=== PATIENT | female | born 1935 | race African-American/Black ===

== ENCOUNTER 2020-11-10 20:53 | Inpatient (IN) ==
[2020-11-11 00:44] LABS: Alanine Aminotransferase 25 U/L (13-56); Albumin 3.2 G/DL (3.4-5.0); Alkaline Phosphatase 90 U/L (45-117); Aspartate Amino Transferase 21 U/L (0-37); Bilirubin,Total < 0.39 MG/DL (0.2-1.0); Blood Urea Nitrogen 15 MG/DL (7-18); Calcium 8.6 MG/DL (8.5-10.1); Carbon Dioxide 23 MMOL/L (21-32); Estimated Glom Filtration Rate 63 ML/MIN; Glucose 114 MG/DL (74-106); Osmolality,Calculated 284.1 MOS/KG (273-304); Potassium 3.9 MMOL/L (3.5-5.1); Sodium 142 MMOL/L (136-145); Total Protein 7.4 G/DL (6.4-8.3)
[2020-11-11 01:17] LABS: Basophils % 0.7 % (0.0-0.8); Eosinophils # 0.1 10*3/uL (0.0-0.87); Eosinophils % 1.2 % (0.00-10.9); Immature Granulocytes % 1.7 %; Immature Granulocytes Absolute 0.07 #; Lymphocytes # 1.2 10*3/uL (1.4-4.0); Lymphocytes % 28.5 % (21.3-54.2); Mean Corpuscular Volume 121.7 FL (87-102); Monocytes % 4.8 % (1.7-12.7); NRBC # 0.03 10*3/uL; Neutrophils % 63.1 % (38.7-73.9); Platelet Count 147 T/CUMM (130-400); Red Blood Count 1.15 MC/CUMM (3.8-5.5); Red Cell Distribution Width 19.3 % (9.3-17.3); White Blood Count 4.1 T/CUMM (4-12)
[2020-11-11 01:19] LABS: Hemoglobin 4.2 GM/DL (12.0-16.0)
[2020-11-11 01:37] LABS: Eosinophils 2 % (0-10); Hypochromasia 3+; Lymphocytes 25 % (20-55); Ovalocytes 1+; Platelet Estimate Normal
[2020-11-11 01:38] LABS: Acanthocytes Few; Macrocytosis Slight; Segmented Neutrophils 0 % (50-85); Total Cells Counted 100
[2020-11-11] MEDS ORDERED: DEXTROSE 50% 25 GM/50 ML VIAL IV PRN (01:38)
[2020-11-11] MEDS ORDERED: GLUCAGON 1 MG VIAL IM PRN (01:38)
[2020-11-11] MEDS ORDERED: SODIUM CHLORIDE 0.9% 1,000 ML IV PRN ×2 (01:38→09:58)
[2020-11-11] MEDS ORDERED: ONDANSETRON 4 MG/2 ML VIAL IV PRN (01:48)
[2020-11-11] MEDS ORDERED: NICOTINE 21 MG/24 HR PATCH TRANSDERM PRN (01:48)
[2020-11-11] MEDS ORDERED: ACETAMINOPHEN 325 MG TABLET PO PRN (01:48)
[2020-11-11] MEDS: PANTOPRAZOLE 40 MG VIAL IV SCH ×3 (02:29→20:44)
[2020-11-11 03:10] LABS: Basophils % 0.7 % (0.0-0.8); Eosinophils # 0.1 10*3/uL (0.0-0.87); Eosinophils % 1.2 % (0.00-10.9); Immature Granulocytes % 1.9 %; Immature Granulocytes Absolute 0.08 #; Lymphocytes # 1.5 10*3/uL (1.4-4.0); Lymphocytes % 35.2 % (21.3-54.2); Mean Corpuscular HGB Conc 29.5 GM/DL (32-36); Mean Corpuscular Volume 125.9 FL (87-102); Mean Platelet Volume 14.9 FL (9.6-12.0); Monocytes % 5.6 % (1.7-12.7); NRBC # 0.02 10*3/uL; Neutrophils % 55.4 % (38.7-73.9); Platelet Count 137 T/CUMM (130-400); Red Blood Count 1.16 MC/CUMM (3.8-5.5); Red Cell Distribution Width 19.3 % (9.3-17.3); White Blood Count 4.3 T/CUMM (4-12)
[2020-11-11 03:16] LABS: Hematocrit 14.6 VOL% (35.7-47.0); Hemoglobin 4.3 GM/DL (12.0-16.0)
[2020-11-11 04:04] LABS: Folate 15.8 NG/ML (5.38-24.0)
[2020-11-11 04:27] LABS: Sedimentation Rate-Westergren 112 MM/HR (0-30)
[2020-11-11 08:41] LABS: Hematocrit 20.2 VOL% (35.7-47.0)
[2020-11-11 08:45] LABS: Hemoglobin 6.2 GM/DL (12.0-16.0)
[2020-11-11] MEDS: hydrALAZINE 20 MG/1 ML VIAL IV PRN (14:00)
[2020-11-11 16:43] LABS: Hematocrit 28.5 VOL% (35.7-47.0); Hemoglobin 9.1 GM/DL (12.0-16.0)
[2020-11-11] MEDS ORDERED: FUROSEMIDE 20 MG/2 ML VIAL IV ONE (19:50)
[2020-11-11 20:51] LABS: Hematocrit 28.7 VOL% (35.7-47.0); Hemoglobin 9.1 GM/DL (12.0-16.0)
[2020-11-12 04:28] LABS: Basophils # 0.1 10*3/uL (0.0-0.2); Eosinophils # 0.1 10*3/uL (0.0-0.87); Eosinophils % 1.3 % (0.00-10.9); Hematocrit 28.3 VOL% (35.7-47.0); Hemoglobin 9.2 GM/DL (12.0-16.0); Immature Granulocytes % 3.1 %; Immature Granulocytes Absolute 0.17 #; Lymphocytes % 18.6 % (21.3-54.2); Mean Corpuscular HGB Conc 32.5 GM/DL (32-36); Mean Corpuscular Volume 101.4 FL (87-102); Monocytes % 8.5 % (1.7-12.7); Neutrophils % 66.5 % (38.7-73.9); Platelet Count 126 T/CUMM (130-400); Red Cell Distribution Width 22.4 % (9.3-17.3); White Blood Count 5.4 T/CUMM (4-12)
[2020-11-12 04:34] LABS: Red Blood Count 2.79 MC/CUMM (3.8-5.5)
[2020-11-12 04:46] LABS: Calcium 8.7 MG/DL (8.5-10.1); Osmolality,Calculated 282.1 MOS/KG (273-304); Potassium 3.4 MMOL/L (3.5-5.1)
[2020-11-12 04:55] LABS: Eosinophils 2 % (0-10); Hypochromasia 1+; Lymphocytes 17 % (20-55); Microcytosis 1+; Segmented Neutrophils 75 % (50-85); Total Cells Counted 100
[2020-11-12 05:23] LABS: Vitamin B12 1630 PG/ML (211-911)
[2020-11-12 05:24] LABS: Folate 15.8 NG/ML (5.38-24.0)
[2020-11-12] MEDS: PANTOPRAZOLE 40 MG VIAL IV SCH ×2 (08:12→20:34)
[2020-11-12] MEDS: FUROSEMIDE 20 MG/2 ML VIAL IV SCH ×2 (09:34→16:49)
[2020-11-12] MEDS: hydrALAZINE 20 MG/1 ML VIAL IV PRN (11:40)
[2020-11-12 14:56] LABS: % Iron Saturation 77.9 % (18-50)
[2020-11-12] MEDS: POTASSIUM CHLORIDE 20 MEQ TABLET PO PRN ×2 (15:08→16:49)
[2020-11-12 15:10] LABS: Hb A 91.6 % (95.8-98.0); Hb A2 1.9 % (2.0-3.3); Hb F 6.5 % (0.0-0.9)
[2020-11-13 05:51] LABS: Hemoglobin A1 (Alkaline) 91.6 % (96.5-98.5); Hemoglobin A2 (Alkaline) 1.9 % (1.5-3.5); Hemoglobin F (Alkaline) 6.5 %
[2020-11-13 06:58] LABS: Basophils # 0.1 10*3/uL (0.0-0.2); Basophils % 2.2 % (0.0-0.8); Eosinophils # 0.1 10*3/uL (0.0-0.87); Eosinophils % 1.7 % (0.00-10.9); Hemoglobin 8.4 GM/DL (12.0-16.0); Immature Granulocytes % 1.7 %; Immature Granulocytes Absolute 0.07 #; Lymphocytes # 1.2 10*3/uL (1.4-4.0); Lymphocytes % 27.9 % (21.3-54.2); Mean Corpuscular HGB Conc 32.3 GM/DL (32-36); Mean Corpuscular Volume 100.8 FL (87-102); Mean Platelet Volume 14.8 FL (9.6-12.0); Monocytes % 8.2 % (1.7-12.7); NRBC # 0.02 10*3/uL; Neutrophils % 58.3 % (38.7-73.9); Platelet Count 124 T/CUMM (130-400); Red Blood Count 2.58 MC/CUMM (3.8-5.5); Red Cell Distribution Width 21.1 % (9.3-17.3); White Blood Count 4.2 T/CUMM (4-12)
[2020-11-13 07:14] LABS: Calcium 8.4 MG/DL (8.5-10.1); Osmolality,Calculated 288.7 MOS/KG (273-304); Potassium 3.5 MMOL/L (3.5-5.1)
[2020-11-13 07:24] LABS: Band Neutrophils 1 % (0-10); Eosinophils 1 % (0-10); Hypochromasia 1+; Lymphocytes 28 % (20-55); Microcytosis 1+; Ovalocytes Slight; Segmented Neutrophils 67 % (50-85); Total Cells Counted 100
[2020-11-13] MEDS: PANTOPRAZOLE 40 MG VIAL IV SCH ×2 (08:59→20:47)
[2020-11-13] MEDS: FUROSEMIDE 20 MG/2 ML VIAL IV SCH ×2 (08:59→15:27)
[2020-11-13] MEDS: LEVOFLOXACIN INJ 750 MG in PREMIX 1 EACH IV SCH (17:58)
[2020-11-14 05:39] LABS: Basophils # 0.1 10*3/uL (0.0-0.2); Basophils % 1.3 % (0.0-0.8); Eosinophils # 0.1 10*3/uL (0.0-0.87); Hematocrit 25.3 VOL% (35.7-47.0); Hemoglobin 8.4 GM/DL (12.0-16.0); Immature Granulocytes % 1.6 %; Immature Granulocytes Absolute 0.07 #; Lymphocytes % 21.6 % (21.3-54.2); Mean Corpuscular HGB Conc 33.2 GM/DL (32-36); Mean Corpuscular Volume 100.4 FL (87-102); NRBC # 0.02 10*3/uL; Neutrophils % 63.5 % (38.7-73.9); Platelet Count 106 T/CUMM (130-400); Red Blood Count 2.52 MC/CUMM (3.8-5.5); Red Cell Distribution Width 20.4 % (9.3-17.3); White Blood Count 4.5 T/CUMM (4-12)
[2020-11-14 06:03] LABS: Calcium 8.6 MG/DL (8.5-10.1); Osmolality,Calculated 281.1 MOS/KG (273-304); Potassium 3.7 MMOL/L (3.5-5.1)
[2020-11-14 06:07] LABS: Hypochromasia 2+; Microcytosis 1+
[2020-11-14 06:08] LABS: Anisocytosis 1+; Ovalocytes Few; Platelet Estimate Decreased
[2020-11-14] MEDS: PANTOPRAZOLE 40 MG VIAL IV SCH ×2 (08:44→20:22)
[2020-11-14] MEDS: FUROSEMIDE 20 MG/2 ML VIAL IV SCH ×2 (08:44→15:15)
[2020-11-14] MEDS: LACTATED RINGERS 1,000 ML IV SCH (12:15)
[2020-11-14] MEDS ORDERED: LIDOCAINE 2% 5 ML VIAL ONE (12:57)
[2020-11-14] MEDS ORDERED: propofoL 200 MG/20 ML VIAL IV ONE (12:57)
[2020-11-14] MEDS ORDERED: POLYETHYLENE GLYCOL POWDER 255 GM BOTTLE PO ONE (18:00)
[2020-11-14] MEDS: LEVOFLOXACIN INJ 750 MG in PREMIX 1 EACH IV SCH (20:24)
[2020-11-15] MEDS ORDERED: MAGNESIUM CITRATE 300 ML BOTTLE PO ONE (06:00)
[2020-11-15 06:26] LABS: Basophils # 0.1 10*3/uL (0.0-0.2); Basophils % 1.1 % (0.0-0.8); Eosinophils # 0.1 10*3/uL (0.0-0.87); Hematocrit 25.1 VOL% (35.7-47.0); Hemoglobin 7.9 GM/DL (12.0-16.0); Immature Granulocytes % 1.6 %; Immature Granulocytes Absolute 0.07 #; Lymphocytes # 0.7 10*3/uL (1.4-4.0); Lymphocytes % 15.8 % (21.3-54.2); Mean Corpuscular HGB Conc 31.5 GM/DL (32-36); Mean Corpuscular Volume 102.4 FL (87-102); Monocytes % 9.5 % (1.7-12.7); NRBC # 0.03 10*3/uL; Platelet Count 108 T/CUMM (130-400); Red Blood Count 2.45 MC/CUMM (3.8-5.5); Red Cell Distribution Width 19.9 % (9.3-17.3); White Blood Count 4.4 T/CUMM (4-12)
[2020-11-15 08:19] LABS: Band Neutrophils 2 % (0-10); Eosinophils 6 % (0-10); Lymphocytes 8 % (20-55); Nucleated Red Blood Cells 1 (0-5); Segmented Neutrophils 78 % (50-85); Total Cells Counted 100
[2020-11-15 08:20] LABS: Anisocytosis 1+; Hypochromasia Slight; Microcytosis 1+
[2020-11-15 08:21] LABS: Platelet Estimate Adequate; Polychromasia Slight
[2020-11-15] MEDS: FUROSEMIDE 20 MG/2 ML VIAL IV SCH ×2 (08:38→16:26)
[2020-11-15] MEDS: PANTOPRAZOLE 40 MG VIAL IV SCH ×2 (08:39→21:25)
[2020-11-15] MEDS ORDERED: LIDOCAINE 2% 5 ML VIAL ONE (13:09)
[2020-11-15] MEDS ORDERED: propofoL 200 MG/20 ML VIAL IV ONE (13:09)
[2020-11-15] MEDS ORDERED: GLYCOPYRROLATE 0.4 MG/2 ML VIAL ONE (13:45)
[2020-11-15] MEDS ORDERED: PHENYLEPHRINE 1 MG/10 ML SYRINGE IV ONE (13:45)
[2020-11-15] MEDS: LACTATED RINGERS 1,000 ML IV SCH (14:02)
[2020-11-15] MEDS: LEVOFLOXACIN INJ 750 MG in PREMIX 1 EACH IV SCH (21:27)
[2020-11-16 06:18] LABS: Basophils # 0.1 10*3/uL (0.0-0.2); Basophils % 2.7 % (0.0-0.8); Eosinophils # 0.1 10*3/uL (0.0-0.87); Hematocrit 25.3 VOL% (35.7-47.0); Immature Granulocytes % 1.7 %; Immature Granulocytes Absolute 0.05 #; Lymphocytes % 32.3 % (21.3-54.2); Mean Corpuscular HGB Conc 31.6 GM/DL (32-36); Monocytes % 10.4 % (1.7-12.7); Neutrophils % 48.9 % (38.7-73.9); Red Blood Count 2.48 MC/CUMM (3.8-5.5); Red Cell Distribution Width 19.9 % (9.3-17.3)
[2020-11-16 06:22] LABS: Platelet Count 96 T/CUMM (130-400)
[2020-11-16 06:40] LABS: Calcium 8.1 MG/DL (8.5-10.1); Osmolality,Calculated 283.1 MOS/KG (273-304); Potassium 2.9 MMOL/L (3.5-5.1)
[2020-11-16 06:52] LABS: Band Neutrophils 1 % (0-10); Eosinophils 5 % (0-10); Lymphocytes 28 % (20-55); Segmented Neutrophils 60 % (50-85); Total Cells Counted 100
[2020-11-16 06:54] LABS: Hypochromasia 1+; Ovalocytes 1+; Platelet Estimate Decreased; Reactive Lymphocytes Few
[2020-11-16 06:55] LABS: Microcytosis 1+
[2020-11-16] MEDS: FUROSEMIDE 20 MG/2 ML VIAL IV SCH (08:55)
[2020-11-16] MEDS: PANTOPRAZOLE 40 MG VIAL IV SCH (08:56)
[2020-11-16] MEDS: POTASSIUM CHLORIDE 20 MEQ TABLET PO PRN (08:57)
[2020-11-16] MEDS: LACTATED RINGERS 1,000 ML IV SCH (08:59)
[2020-11-16 11:04] VITALS: BP 123/61
[2020-11-16] MEDS ORDERED: POTASSIUM CHLORIDE 20 MEQ PACK PO ONE (11:35)
== END 2020-11-16 13:34 | disposition home or self-care (01) | DRG 811 ==
LOC: N.ED 20:53 → N.EDINP 11-11 01:38 → N.ICU 11-11 02:47 → N.5E 11-12 15:30
PROVIDERS: ADMIT Internal Medicine; ATTEND Internal Medicine

== ENCOUNTER 2021-01-24 10:08 | Inpatient (IN) ==
[2021-01-24 12:25] LABS: Basophils # 0.1 10*3/uL (0.0-0.2); Basophils % 1.3 % (0.0-0.8); Eosinophils # 0.1 10*3/uL (0.0-0.87); Eosinophils % 1.5 % (0.00-10.9); Immature Granulocytes Absolute 0.04 #; Lymphocytes # 1.3 10*3/uL (1.4-4.0); Lymphocytes % 33.5 % (21.3-54.2); Mean Corpuscular Volume 107.4 FL (87-102); Monocytes % 5.4 % (1.7-12.7); Neutrophils % 57.3 % (38.7-73.9); Platelet Count 148 T/CUMM (130-400); Red Blood Count 1.35 MC/CUMM (3.8-5.5); Red Cell Distribution Width 24.4 % (9.3-17.3); White Blood Count 3.9 T/CUMM (4-12)
[2021-01-24 12:33] LABS: INR 1.1; PT Patient Result 12.4 SECS (10.5-12.0)
[2021-01-24 12:37] LABS: Hemoglobin 4.5 GM/DL (12.0-16.0)
[2021-01-24 12:38] LABS: Hematocrit 14.5 VOL% (35.7-47.0)
[2021-01-24 12:44] LABS: Albumin 3.4 G/DL (3.4-5.0); Bilirubin,Total 0.7 MG/DL (0.2-1.0); Calcium 9.1 MG/DL (8.5-10.1); Osmolality,Calculated 277.4 MOS/KG (273-304); Potassium 3.8 MMOL/L (3.5-5.1); Total Protein 7.6 G/DL (6.4-8.2)
[2021-01-24 12:52] LABS: Atypical Lymphocytes 1+; Band Neutrophils 1 % (0-10); Eosinophils 2 % (0-10); Lymphocytes 38 % (20-55); Platelet Estimate Adequate; Segmented Neutrophils 53 % (50-85); Total Cells Counted 100
[2021-01-24 12:53] LABS: Macrocytosis 2+; Ovalocytes Few; Schistocytes Slight; Target Cells Slight
[2021-01-24] MEDS ORDERED: ALBUTEROL 2.5 MG/3 ML NEB RESP TX PRN (13:25)
[2021-01-24] MEDS ORDERED: GLUCAGON 1 MG VIAL IM PRN (13:25)
[2021-01-24] MEDS ORDERED: DEXTROSE 50% 25 GM/50 ML VIAL IV PRN (13:25)
[2021-01-24 13:42] LABS: % Iron Saturation 89.6 % (18-50); Ferritin 555.2 ng/ml (8-252)
[2021-01-24] MEDS ORDERED: SODIUM CHLORIDE 0.9% 1,000 ML IV PRN (13:53)
[2021-01-24] MEDS ORDERED: FUROSEMIDE 40 MG/4 ML VIAL IV PRN (13:54)
[2021-01-24] MEDS: SODIUM CHLORIDE 0.9% 1,000 ML IV SCH (19:10)
[2021-01-25 05:29] LABS: Basophils # 0.1 10*3/uL (0.0-0.2); Basophils % 1.8 % (0.0-0.8); Eosinophils # 0.1 10*3/uL (0.0-0.87); Eosinophils % 1.3 % (0.00-10.9); Hematocrit 19.8 VOL% (35.7-47.0); Hemoglobin 6.6 GM/DL (12.0-16.0); Immature Granulocytes % 1.1 %; Immature Granulocytes Absolute 0.04 #; Lymphocytes # 1.1 10*3/uL (1.4-4.0); Lymphocytes % 28.2 % (21.3-54.2); Mean Corpuscular HGB Conc 33.3 GM/DL (32-36); Mean Corpuscular Volume 97.5 FL (87-102); Monocytes % 8.9 % (1.7-12.7); Neutrophils % 58.7 % (38.7-73.9); Platelet Count 114 T/CUMM (130-400); Red Blood Count 2.03 MC/CUMM (3.8-5.5); White Blood Count 3.8 T/CUMM (4-12)
[2021-01-25 06:00] LABS: Potassium 3.3 MMOL/L (3.5-5.1); Thyroid Stimulating Hormone 2.6 uIU/ml (0.358-3.74)
[2021-01-25 07:03] LABS: Atypical Lymphocytes Few; Band Neutrophils 17 % (0-10); Eosinophils 1 % (0-10); Lymphocytes 29 % (20-55); Myelocytes 1 %; Platelet Estimate Adequate; Segmented Neutrophils 48 % (50-85); Total Cells Counted 100
[2021-01-25 07:04] LABS: Anisocytosis 2+; Burr Cells Few; Ovalocytes Few; Poikilocytosis 1+
[2021-01-25 07:05] LABS: Acanthocytes Few; Macrocytosis 1+
[2021-01-25] MEDS ORDERED: SODIUM CHLORIDE 0.9% 1,000 ML IV PRN (08:12)
[2021-01-25] MEDS ORDERED: POTASSIUM CHLORIDE 20 MEQ TABLET PO ONE (08:15)
[2021-01-25] MEDS: PANTOPRAZOLE 40 MG VIAL IV SCH (08:54)
[2021-01-25 10:15] LABS: Vitamin B12 > 2000 PG/ML (211-911)
[2021-01-25 10:18] LABS: Ferritin 558.5 ng/ml (8-252)
[2021-01-25 10:52] LABS: Sedimentation Rate-Westergren 81 MM/HR (0-30)
[2021-01-25 18:37] LABS: Hematocrit 22.8 VOL% (35.7-47.0); Hemoglobin 7.6 GM/DL (12.0-16.0)
[2021-01-26 06:51] LABS: Basophils # 0.1 10*3/uL (0.0-0.2); Basophils % 1.5 % (0.0-0.8); Eosinophils # 0.1 10*3/uL (0.0-0.87); Eosinophils % 1.9 % (0.00-10.9); Hematocrit 22.5 VOL% (35.7-47.0); Hemoglobin 7.4 GM/DL (12.0-16.0); Immature Granulocytes Absolute 0.04 #; Lymphocytes # 1.2 10*3/uL (1.4-4.0); Lymphocytes % 29.4 % (21.3-54.2); Mean Corpuscular HGB Conc 32.9 GM/DL (32-36); Mean Corpuscular Volume 96.2 FL (87-102); Monocytes % 7.5 % (1.7-12.7); Neutrophils % 58.7 % (38.7-73.9); Platelet Count 103 T/CUMM (130-400); Red Blood Count 2.34 MC/CUMM (3.8-5.5); Red Cell Distribution Width 20.3 % (9.3-17.3); White Blood Count 4.1 T/CUMM (4-12)
[2021-01-26 07:34] LABS: Anisocytosis 3+; Burr Cells Few; Platelet Estimate Adequate
[2021-01-26 07:35] LABS: Macrocytosis 1+; Ovalocytes Few
[2021-01-26 09:04] LABS: Calcium 8.8 MG/DL (8.5-10.1); Osmolality,Calculated 285.8 MOS/KG (273-304); Potassium 3.4 MMOL/L (3.5-5.1)
[2021-01-26 09:08] LABS: Troponin I 0.026 NG/ML (0.00-0.045)
[2021-01-26] MEDS: PANTOPRAZOLE 40 MG VIAL IV SCH (09:18)
[2021-01-26] MEDS ORDERED: SODIUM CHLOR 0.45% KCL 20 MEQ 20 MEQ/1,000 ML BAG IV SCH (10:30)
[2021-01-26 14:45] LABS: Troponin I 0.022 NG/ML (0.00-0.045)
[2021-01-26 19:09] LABS: Barbiturates Screen,Urine Negative (Negative); Benzodiazepines Screen,Urine Negative (Negative); Cannabinoid Screen,Urine Negative (Negative); Opiate Screen,Urine Negative (Negative); Phencyclidine Screen,Urine Negative (Negative)
[2021-01-26 20:54] LABS: Troponin I 0.017 NG/ML (0.00-0.045)
[2021-01-27 05:04] LABS: Basophils # 0.1 10*3/uL (0.0-0.2); Basophils % 1.1 % (0.0-0.8); Eosinophils # 0.1 10*3/uL (0.0-0.87); Eosinophils % 1.4 % (0.00-10.9); Hematocrit 22.8 VOL% (35.7-47.0); Hemoglobin 7.4 GM/DL (12.0-16.0); Immature Granulocytes % 0.9 %; Immature Granulocytes Absolute 0.04 #; Lymphocytes # 1.2 10*3/uL (1.4-4.0); Lymphocytes % 27.8 % (21.3-54.2); Mean Corpuscular HGB Conc 32.5 GM/DL (32-36); Mean Corpuscular Volume 98.7 FL (87-102); Neutrophils % 62.8 % (38.7-73.9); Platelet Count 112 T/CUMM (130-400); Red Blood Count 2.31 MC/CUMM (3.8-5.5); Red Cell Distribution Width 19.8 % (9.3-17.3); White Blood Count 4.4 T/CUMM (4-12)
[2021-01-27 05:21] LABS: Calcium 8.4 MG/DL (8.5-10.1); Osmolality,Calculated 282.1 MOS/KG (273-304); Potassium 3.7 MMOL/L (3.5-5.1)
[2021-01-27 05:31] LABS: Anisocytosis 1+; Atypical Lymphocytes Few; Band Neutrophils 2 % (0-10); Hypochromasia 1+; Lymphocytes 29 % (20-55); Macrocytosis 1+; Myelocytes 1 %; Segmented Neutrophils 57 % (50-85); Total Cells Counted 100
[2021-01-27 05:32] LABS: Platelet Estimate Adequate
[2021-01-27 05:49] LABS: Hemoglobin A1 (Alkaline) 89.9 % (96.5-98.5); Hemoglobin A2 (Alkaline) 2.1 % (1.5-3.5)
[2021-01-27 05:54] LABS: Folate > 24.00 NG/ML (5.38-24.0)
[2021-01-27] MEDS: SODIUM CHLORIDE 0.9% 1,000 ML IV SCH (07:42)
[2021-01-27] MEDS: PANTOPRAZOLE 40 MG VIAL IV SCH (08:49)
[2021-01-27] MEDS ORDERED: SODIUM CHLORIDE 0.9% 1,000 ML IV PRN (12:30)
[2021-01-27] MEDS ORDERED: diphenhydrAMINE 50 MG/1 ML VIAL IV PRN (12:32)
[2021-01-27] MEDS ORDERED: ACETAMINOPHEN 325 MG TABLET PO PRN (12:32)
[2021-01-28 05:27] LABS: Basophils # 0.1 10*3/uL (0.0-0.2); Eosinophils # 0.1 10*3/uL (0.0-0.87); Hematocrit 26.8 VOL% (35.7-47.0); Hemoglobin 8.6 GM/DL (12.0-16.0); Immature Granulocytes % 1.2 %; Immature Granulocytes Absolute 0.06 #; Lymphocytes # 1.3 10*3/uL (1.4-4.0); Mean Corpuscular HGB Conc 32.1 GM/DL (32-36); Mean Corpuscular Volume 97.1 FL (87-102); Monocytes % 6.3 % (1.7-12.7); Neutrophils % 63.5 % (38.7-73.9); Platelet Count 107 T/CUMM (130-400); Red Blood Count 2.76 MC/CUMM (3.8-5.5); Red Cell Distribution Width 19.2 % (9.3-17.3)
[2021-01-28 05:44] LABS: Calcium 8.4 MG/DL (8.5-10.1); Osmolality,Calculated 282.1 MOS/KG (273-304); Potassium 3.7 MMOL/L (3.5-5.1)
[2021-01-28 05:53] LABS: Calcium 8.5 MG/DL (8.5-10.1); Potassium 3.8 MMOL/L (3.5-5.1)
[2021-01-28 05:59] LABS: Atypical Lymphocytes Few; Band Neutrophils 1 % (0-10); Eosinophils 4 % (0-10); Hypochromasia 1+; Lymphocytes 19 % (20-55); Microcytosis 1+; Ovalocytes Slight; Platelet Estimate Decreased; Segmented Neutrophils 72 % (50-85); Total Cells Counted 100
[2021-01-28] MEDS ORDERED: POTASSIUM CHLORIDE 20 MEQ TABLET PO ONE (08:49)
[2021-01-28] MEDS: PANTOPRAZOLE 40 MG VIAL IV SCH (09:09)
[2021-01-28 10:10] VITALS: BP 123/84
== END 2021-01-28 12:46 | disposition home or self-care (01) | DRG 812 ==
LOC: N.ED 10:08 → N.EDINP 10:08 → SUATTDRO 13:10 → N.4E 15:22
PROVIDERS: ADMIT Hospitalist; ATTEND Internal Medicine

== ENCOUNTER 2021-03-02 03:53 | Inpatient (IN) ==
[2021-03-02 05:47] LABS: Basophils # 0.1 10*3/uL (0.0-0.2); Basophils % 2.3 % (0.0-0.8); Eosinophils # 0.1 10*3/uL (0.0-0.87); Eosinophils % 2.6 % (0.00-10.9); Hematocrit 19.9 VOL% (35.7-47.0); Hemoglobin 6.5 GM/DL (12.0-16.0); Immature Granulocytes % 1.6 %; Immature Granulocytes Absolute 0.07 #; Lymphocytes # 1.3 10*3/uL (1.4-4.0); Mean Corpuscular HGB Conc 32.7 GM/DL (32-36); Mean Corpuscular Volume 98.5 FL (87-102); Monocytes % 5.8 % (1.7-12.7); Neutrophils % 58.7 % (38.7-73.9); Platelet Count 127 T/CUMM (130-400); Red Blood Count 2.02 MC/CUMM (3.8-5.5); Red Cell Distribution Width 19.9 % (9.3-17.3); White Blood Count 4.3 T/CUMM (4-12)
[2021-03-02 06:08] LABS: Albumin 3.3 G/DL (3.4-5.0); Bilirubin,Total 0.5 MG/DL (0.2-1.0); Osmolality,Calculated 284.1 MOS/KG (273-304); Potassium 3.6 MMOL/L (3.5-5.1); Total Protein 7.9 G/DL (6.4-8.2)
[2021-03-02 06:30] LABS: Eosinophils 2 % (0-10); Lymphocytes 27 % (20-55); Platelet Estimate Normal; Segmented Neutrophils 68 % (50-85); Total Cells Counted 100
[2021-03-02 06:31] LABS: Hypochromasia 3+
[2021-03-02] MEDS ORDERED: ONDANSETRON 4 MG/2 ML VIAL IV PRN (08:23)
[2021-03-02] MEDS ORDERED: ACETAMINOPHEN 325 MG TABLET PO PRN (08:23)
[2021-03-02] MEDS ORDERED: DEXTROSE 50% 25 GM/50 ML VIAL IV PRN (08:23)
[2021-03-02] MEDS ORDERED: GLUCAGON 1 MG VIAL IM PRN (08:23)
[2021-03-02] MEDS ORDERED: DOCUSATE SODIUM 100 MG CAPSULE PO PRN (08:23)
[2021-03-02] MEDS ORDERED: hydrALAZINE 20 MG/1 ML VIAL IV PRN (08:23)
[2021-03-02] MEDS ORDERED: SODIUM CHLORIDE 0.9% 1,000 ML IV PRN (08:25)
[2021-03-02] MEDS: PANTOPRAZOLE 40 MG TABLET PO SCH (12:27)
[2021-03-02 15:44] LABS: Bilirubin,Urine Negative (Negative); Blood, Urine Moderate mg/dL (Negative); Glucose,Urine (UA) Negative (Negative); Ketones,Urine Negative (Negative); Mucus,Urine Occasional /LPF (Occasional); Nitrite,Urine Negative (Negative); Protein,Urine Negative; RBC,Urine 2 /HPF (0-4); Squamous Epithelial Cell,Urine Occasional /HPF (0-10); Urine Appearance CLEAR (Clear); Urine Color Straw (Yellow); Urine Specific Gravity 1.009 (1.001-1.035); Urine Urobilinogen < 2.0 EU/DL (0.2-1.0)
[2021-03-03 04:57] LABS: Basophils # 0.1 10*3/uL (0.0-0.2); Basophils % 1.8 % (0.0-0.8); Eosinophils # 0.1 10*3/uL (0.0-0.87); Eosinophils % 2.2 % (0.00-10.9); Hematocrit 24.1 VOL% (35.7-47.0); Hemoglobin 7.8 GM/DL (12.0-16.0); Immature Granulocytes Absolute 0.05 #; Lymphocytes # 0.8 10*3/uL (1.4-4.0); Mean Corpuscular HGB Conc 32.4 GM/DL (32-36); Mean Corpuscular Volume 94.1 FL (87-102); Platelet Count 114 T/CUMM (130-400); Red Cell Distribution Width 18.7 % (9.3-17.3)
[2021-03-03 05:02] LABS: Red Blood Count 2.56 MC/CUMM (3.8-5.5)
[2021-03-03 05:13] LABS: Calcium 8.5 MG/DL (8.5-10.1); Potassium 3.9 MMOL/L (3.5-5.1)
[2021-03-03 05:24] LABS: Hypochromasia 2+; Microcytosis Slight; Ovalocytes Slight; Platelet Estimate Decreased
[2021-03-03 09:13] LABS: % Iron Saturation 88.1 % (18-50); Ferritin 729.1 ng/ml (8-252)
[2021-03-03 09:22] LABS: Folate 15.95 NG/ML (5.38-24.0)
[2021-03-03] MEDS: PANTOPRAZOLE 40 MG TABLET PO SCH (09:54)
[2021-03-03] MEDS: amLODIPine 5 MG TABLET PO SCH (09:55)
[2021-03-04 06:52] LABS: Basophils # 0.1 10*3/uL (0.0-0.2); Basophils % 1.5 % (0.0-0.8); Eosinophils # 0.1 10*3/uL (0.0-0.87); Eosinophils % 2.1 % (0.00-10.9); Hematocrit 24.7 VOL% (35.7-47.0); Immature Granulocytes % 0.9 %; Immature Granulocytes Absolute 0.04 #; Lymphocytes # 1.1 10*3/uL (1.4-4.0); Lymphocytes % 22.4 % (21.3-54.2); Mean Corpuscular HGB Conc 32.4 GM/DL (32-36); Mean Corpuscular Volume 92.9 FL (87-102); Monocytes % 4.9 % (1.7-12.7); Neutrophils % 68.2 % (38.7-73.9); Platelet Count 118 T/CUMM (130-400); Red Blood Count 2.66 MC/CUMM (3.8-5.5); Red Cell Distribution Width 18.9 % (9.3-17.3); White Blood Count 4.7 T/CUMM (4-12)
[2021-03-04 07:12] LABS: Band Neutrophils 1 % (0-10); Eosinophils 3 % (0-10); Lymphocytes 20 % (20-55); Platelet Estimate Normal; Segmented Neutrophils 73 % (50-85); Total Cells Counted 100
[2021-03-04] MEDS ORDERED: diphenhydrAMINE CAP 25 MG CAPSULE PO ONE (09:00)
[2021-03-04] MEDS ORDERED: ceFAZolin 1,000 MG VIAL IRRIG ONE (09:00)
[2021-03-04] MEDS ORDERED: DIAZEPAM 5 MG TABLET PO ONE (09:00)
[2021-03-04] MEDS: PANTOPRAZOLE 40 MG TABLET PO SCH (09:36)
[2021-03-04] MEDS: amLODIPine 5 MG TABLET PO SCH (09:36)
[2021-03-04] MEDS ORDERED: fentaNYL 100 MCG/2 ML VIAL ONE (10:03)
[2021-03-04] MEDS ORDERED: LIDOCAINE 1% 20 ML VIAL ONE (10:03)
[2021-03-04] MEDS ORDERED: MIDAZOLAM 2 MG/2 ML VIAL ONE (10:03)
[2021-03-04] MEDS ORDERED: TISSUE ADHESIVE 1 EACH APPLICATOR TOP ONE (11:31)
[2021-03-05 04:46] LABS: Basophils # 0.1 10*3/uL (0.0-0.2); Basophils % 0.8 % (0.0-0.8); Eosinophils # 0.1 10*3/uL (0.0-0.87); Eosinophils % 1.6 % (0.00-10.9); Hematocrit 22.4 VOL% (35.7-47.0); Hemoglobin 7.4 GM/DL (12.0-16.0); Immature Granulocytes % 0.9 %; Immature Granulocytes Absolute 0.06 #; Lymphocytes # 0.9 10*3/uL (1.4-4.0); Lymphocytes % 13.3 % (21.3-54.2); Mean Corpuscular Volume 93.7 FL (87-102); Monocytes % 6.3 % (1.7-12.7); Neutrophils % 77.1 % (38.7-73.9); Platelet Count 104 T/CUMM (130-400); Red Blood Count 2.39 MC/CUMM (3.8-5.5); Red Cell Distribution Width 18.3 % (9.3-17.3); White Blood Count 6.4 T/CUMM (4-12)
[2021-03-05 04:59] LABS: Calcium 8.2 MG/DL (8.5-10.1); Osmolality,Calculated 283.1 MOS/KG (273-304); Potassium 3.3 MMOL/L (3.5-5.1)
[2021-03-05 05:11] LABS: Band Neutrophils 4 % (0-10); Eosinophils 2 % (0-10); Hypochromasia 1+; Lymphocytes 9 % (20-55); Metamyelocytes 1 %; Segmented Neutrophils 81 % (50-85); Total Cells Counted 100
[2021-03-05 05:12] LABS: Anisocytosis 1+; Microcytosis 1+; Platelet Estimate Decreased
[2021-03-05] MEDS: amLODIPine 5 MG TABLET PO SCH (08:26)
[2021-03-05] MEDS: PANTOPRAZOLE 40 MG TABLET PO SCH (08:26)
[2021-03-05] MEDS ORDERED: POTASSIUM CHLORIDE 20 MEQ TABLET PO ONE (09:00)
[2021-03-05 11:59] VITALS: BP 120/58
== END 2021-03-05 14:54 | disposition home health service (06) | DRG 983 ==
LOC: N.EDINP 03:53 → N.ED 03:53 → SUATTDRO 07:55 → N.4E 11:07
PROVIDERS: ADMIT Hospitalist; ATTEND Internal Medicine

== ENCOUNTER 2021-04-05 14:28 | Observation (INO) ==
[2021-04-05 18:02] LABS: Basophils # 0.1 10*3/uL (0.0-0.2); Basophils % 0.9 % (0.0-0.8); Eosinophils # 0.1 10*3/uL (0.0-0.87); Eosinophils % 0.9 % (0.00-10.9); Hematocrit 20.3 VOL% (35.7-47.0); Immature Granulocytes % 1.3 %; Lymphocytes % 13.2 % (21.3-54.2); Mean Corpuscular HGB Conc 31.5 GM/DL (32-36); Mean Corpuscular Volume 94.9 FL (87-102); Mean Platelet Volume 14.3 FL (9.6-12.0); Neutrophils % 77.7 % (38.7-73.9); Platelet Count 140 T/CUMM (130-400); Red Blood Count 2.14 MC/CUMM (3.8-5.5); Red Cell Distribution Width 17.8 % (9.3-17.3); White Blood Count 7.4 T/CUMM (4-12)
[2021-04-05 18:06] LABS: Hemoglobin 6.4 GM/DL (12.0-16.0)
[2021-04-05 18:08] LABS: INR 1.1; PT Patient Result 11.9 SECS (10.5-12.0); Partial Thromboplastin Time 23.4 SECS (23.9-33.8)
[2021-04-05 18:28] LABS: Albumin 2.9 G/DL (3.4-5.0); Bilirubin,Total 0.5 MG/DL (0.20-1.00); Calcium 9.4 MG/DL (8.5-10.1); Eosinophils 1 % (0-10); Lymphocytes 9 % (20-55); Nucleated Red Blood Cells 4 (0-5); Osmolality,Calculated 277.7 MOS/KG (273-304); Potassium 3.9 MMOL/L (3.5-5.1); Segmented Neutrophils 88 % (50-85); Total Cells Counted 100; Total Protein 8.5 G/DL (6.4-8.2)
[2021-04-05 18:29] LABS: Platelet Estimate Adequate
[2021-04-05 18:31] LABS: Anisocytosis 1+; Burr Cells Few; Schistocytes Few
[2021-04-05] MEDS ORDERED: ACETAMINOPHEN 325 MG TABLET PO PRN (19:49)
[2021-04-05] MEDS ORDERED: hydrALAZINE 20 MG/1 ML VIAL IV PRN (19:49)
[2021-04-05] MEDS ORDERED: GLUCAGON 1 MG VIAL IM PRN (19:49)
[2021-04-05] MEDS ORDERED: DEXTROSE 50% 25 GM/50 ML VIAL IV PRN (19:49)
[2021-04-05] MEDS ORDERED: ONDANSETRON 4 MG/2 ML VIAL IV PRN (19:49)
[2021-04-05] MEDS ORDERED: SODIUM CHLORIDE 0.9% 1,000 ML IV PRN (19:52)
[2021-04-05] MEDS ORDERED: FUROSEMIDE 40 MG/4 ML VIAL IV ONE (19:53)
[2021-04-05] MEDS ORDERED: ALBUTEROL 1.25 MG/3 ML NEB RESP TX STA (20:11)
[2021-04-06] MEDS ORDERED: FUROSEMIDE 40 MG/4 ML VIAL ONE (04:57)
[2021-04-06 07:33] LABS: Basophils # 0.1 10*3/uL (0.0-0.2); Basophils % 0.9 % (0.0-0.8); Eosinophils # 0.1 10*3/uL (0.0-0.87); Eosinophils % 1.2 % (0.00-10.9); Hematocrit 23.9 VOL% (35.7-47.0); Hemoglobin 7.8 GM/DL (12.0-16.0); Immature Granulocytes % 1.2 %; Immature Granulocytes Absolute 0.09 #; Lymphocytes # 1.1 10*3/uL (1.4-4.0); Lymphocytes % 14.3 % (21.3-54.2); Mean Corpuscular HGB Conc 32.6 GM/DL (32-36); Mean Corpuscular Volume 91.9 FL (87-102); Monocytes % 7.1 % (1.7-12.7); Neutrophils % 75.3 % (38.7-73.9); Platelet Count 144 T/CUMM (130-400); Red Cell Distribution Width 16.5 % (9.3-17.3); White Blood Count 7.5 T/CUMM (4-12)
[2021-04-06 08:01] LABS: Albumin 2.7 G/DL (3.4-5.0); Bilirubin,Total 0.9 MG/DL (0.20-1.00); Calcium 9.3 MG/DL (8.5-10.1); Osmolality,Calculated 275.7 MOS/KG (273-304); Potassium 3.4 MMOL/L (3.5-5.1); Risk Ratio 2.96; Total Protein 8.3 G/DL (6.4-8.2); VLDL Cholesterol 11.4 MG/DL
[2021-04-06] MEDS ORDERED: PANTOPRAZOLE 40 MG TABLET PO SCH (09:00)
[2021-04-06] MEDS ORDERED: POTASSIUM CHLORIDE 20 MEQ TABLET PO STA (09:03)
[2021-04-06 09:33] LABS: Atypical Lymphocytes Few; Band Neutrophils 1 % (0-10); Lymphocytes 4 % (20-55); Metamyelocytes 4 %; Myelocytes 1 %; Platelet Estimate Adequate; Segmented Neutrophils 80 % (50-85); Total Cells Counted 100
[2021-04-06] MEDS: amLODIPine 5 MG TABLET PO SCH (12:26)
[2021-04-06] MEDS: ASPIRIN 325 MG TABLET PO SCH (12:26)
[2021-04-06] MEDS: OMEGA 3 ACID ETHYL ESTERS 1 GM CAPSULE PO SCH (12:26)
[2021-04-06] MEDS: PANTOPRAZOLE 40 MG TABLET PO SCH ×2 (12:27→20:50)
[2021-04-06] MEDS ORDERED: BUPIVACAINE 0.5% 50 ML VIAL MISC INJ ONE (12:44)
[2021-04-06] MEDS ORDERED: BETAMETH SODIUM PHOS/ACETATE 30 MG/5 ML VIAL INTRAARTIC ONE (12:44)
[2021-04-06 14:50] LABS: Lymphocytes,Synovial Fluid 94 %
[2021-04-07 06:02] LABS: Basophils # 0.1 10*3/uL (0.0-0.2); Basophils % 0.7 % (0.0-0.8); Eosinophils # 0.1 10*3/uL (0.0-0.87); Eosinophils % 0.8 % (0.00-10.9); Hemoglobin 9.3 GM/DL (12.0-16.0); Immature Granulocytes % 1.3 %; Immature Granulocytes Absolute 0.11 #; Lymphocytes # 0.8 10*3/uL (1.4-4.0); Lymphocytes % 9.5 % (21.3-54.2); Mean Corpuscular HGB Conc 33.2 GM/DL (32-36); Mean Platelet Volume 13.6 FL (9.6-12.0); Monocytes % 6.4 % (1.7-12.7); Neutrophils % 81.3 % (38.7-73.9); Platelet Count 153 T/CUMM (130-400); Red Blood Count 3.01 MC/CUMM (3.8-5.5); Red Cell Distribution Width 15.6 % (9.3-17.3); White Blood Count 8.3 T/CUMM (4-12)
[2021-04-07 06:22] LABS: Hypochromasia 1+; Microcytosis 1+; Platelet Estimate Adequate
[2021-04-07] MEDS: ASPIRIN 325 MG TABLET PO SCH (08:58)
[2021-04-07] MEDS: amLODIPine 5 MG TABLET PO SCH (08:58)
[2021-04-07] MEDS: PANTOPRAZOLE 40 MG TABLET PO SCH (08:58)
[2021-04-07] MEDS: OMEGA 3 ACID ETHYL ESTERS 1 GM CAPSULE PO SCH (08:58)
[2021-04-07] MEDS ORDERED: CYANOCOBALAMIN 500 MCG TABLET PO SCH (09:00)
[2021-04-07 16:07] VITALS: BP 103/63
[2021-04-11 14:22] LABS: Uric Acid Fluid Source SYNOVIAL FLUID
== END 2021-04-07 17:01 | disposition home or self-care (01) ==
LOC: N.ED 14:28 → N.EDINP 14:28 → SUATTDRO 19:48 → N.5E 04-06 09:55
PROVIDERS: ADMIT Internal Medicine; ATTEND Internal Medicine

== ENCOUNTER 2022-06-22 09:16 | Observation (INO) ==
[2022-06-22 14:01] LABS: Bacteria,Urine Moderate /HPF (Few); Hyaline Casts,Urine 6 /LPF (0-3); Mucus,Urine Many /LPF (Occasional); RBC,Urine 5 /HPF (0-4); Squamous Epithelial Cell,Urine Few /HPF (0-10); Urine Appearance Clear (Clear); Urine Color Yellow (Yellow)
[2022-06-22 14:02] LABS: Bilirubin,Urine Negative (Negative); Blood, Urine Negative (Negative); Glucose,Urine (UA) Negative (Negative); Ketones,Urine Trace mg/dL (Negative); Nitrite,Urine Negative (Negative); Protein,Urine Negative (Negative)
[2022-06-22 15:20] LABS: Basophils # 0.1 10*3/uL (0.0-0.2); Basophils % 1.2 % (0.0-0.8); Eosinophils # 0.1 10*3/uL (0.0-0.87); Eosinophils % 1.6 % (0.00-10.9); Hematocrit 18.2 VOL% (35.7-47.0); Immature Granulocytes % 0.7 %; Immature Granulocytes Absolute 0.05 #; Lymphocytes # 1.3 10*3/uL (1.4-4.0); Lymphocytes % 18.4 % (21.3-54.2); Mean Corpuscular Volume 91.9 FL (87-102); Monocytes # 0.3 10*3/uL (0.11-0.8); Monocytes % 4.1 % (1.7-12.7); Platelet Count 69 T/CUMM (130-400); Red Blood Count 1.98 MC/CUMM (3.8-5.5); Red Cell Distribution Width 14.7 % (9.3-17.3); White Blood Count 6.9 T/CUMM (4-12)
[2022-06-22 15:39] LABS: Alanine Aminotransferase 85 U/L (13-56); Albumin 3.1 G/DL (3.4-5.0); Alkaline Phosphatase 114 U/L (45-117); Aspartate Amino Transferase 49 U/L (0-37); Bilirubin,Total < 0.39 MG/DL (0.20-1.00); Blood Urea Nitrogen 22 MG/DL (7-18); Calcium 9.2 MG/DL (8.5-10.1); Carbon Dioxide 30 MMOL/L (21-32); Chloride 103 MMOL/L (98-107); Glucose 139 MG/DL (74-106); Osmolality,Calculated 285.3 MOS/KG (273-304); Potassium 3.2 MMOL/L (3.5-5.1); Sodium 141 MMOL/L (136-145); Total Protein 7.4 G/DL (6.4-8.2)
[2022-06-22 16:20] LABS: Band Neutrophils 1 % (0-10); Hypochromia Slight; Lymphocytes 15 % (20-55); Microcytosis Slight; Total Cells Counted 100
[2022-06-22 16:21] LABS: Acanthocytes Few; Elliptocytes Few; Platelet Estimate Decreased; Stomatocytes Slight
[2022-06-22] MEDS ORDERED: ACETAMINOPHEN 325 MG TABLET PO PRN (16:48)
[2022-06-22] MEDS ORDERED: ONDANSETRON 4 MG/2 ML VIAL IV PRN (16:48)
[2022-06-22] MEDS ORDERED: SODIUM CHLORIDE 0.9% 1,000 ML IV PRN (16:48)
[2022-06-22] MEDS: CHLORTHALIDONE 25 MG TABLET PO SCH (20:54)
[2022-06-23 07:34] LABS: Albumin 2.9 G/DL (3.4-5.0); Bilirubin,Total 0.5 MG/DL (0.20-1.00); Osmolality,Calculated 283.3 MOS/KG (273-304); Potassium 3.7 MMOL/L (3.5-5.1); Total Protein 7.2 G/DL (6.4-8.2)
[2022-06-23] MEDS ORDERED: POTASSIUM CHLORIDE 20 MEQ TABLET PO ONE (07:34)
[2022-06-23 08:30] LABS: Basophils # 0.1 10*3/uL (0.0-0.2); Basophils % 1.1 % (0.0-0.8); Eosinophils # 0.1 10*3/uL (0.0-0.87); Eosinophils % 2.1 % (0.00-10.9); Hematocrit 26.8 VOL% (35.7-47.0); Hemoglobin 8.7 GM/DL (12.0-16.0); Immature Granulocytes % 0.6 %; Immature Granulocytes Absolute 0.03 #; Lymphocytes % 20.6 % (21.3-54.2); Mean Corpuscular HGB Conc 32.5 GM/DL (32-36); Mean Corpuscular Volume 89.3 FL (87-102); Monocytes # 0.2 10*3/uL (0.11-0.8); Monocytes % 5.1 % (1.7-12.7); Neutrophils % 70.5 % (38.7-73.9); Platelet Count 58 T/CUMM (130-400); White Blood Count 4.8 T/CUMM (4-12)
[2022-06-23] MEDS ORDERED: amLODIPine 5 MG TABLET PO SCH (09:00)
[2022-06-23] MEDS: CYANOCOBALAMIN 500 MCG TABLET PO SCH (09:02)
[2022-06-23] MEDS: CHLORTHALIDONE 25 MG TABLET PO SCH ×2 (09:02→20:57)
[2022-06-23] MEDS: POTASSIUM CHLORIDE 20 MEQ TABLET PO SCH (09:02)
[2022-06-23] MEDS: PANTOPRAZOLE 40 MG TABLET PO SCH (09:02)
[2022-06-23 09:04] LABS: Band Neutrophils 4 % (0-10); Eosinophils 4 % (0-10); Hypochromia Slight; Lymphocytes 15 % (20-55); Microcytosis Slight; Platelet Estimate Decreased; Total Cells Counted 100
[2022-06-23] MEDS ORDERED: MAGNESIUM SULF RIDER 2 GM/50 ML PREMIX IV ONE (12:15)
[2022-06-24 05:09] LABS: Basophils # 0.1 10*3/uL (0.0-0.2); Basophils % 1.2 % (0.0-0.8); Eosinophils # 0.1 10*3/uL (0.0-0.87); Eosinophils % 2.7 % (0.00-10.9); Hematocrit 24.8 VOL% (35.7-47.0); Hemoglobin 8.1 GM/DL (12.0-16.0); Immature Granulocytes Absolute 0.05 #; Lymphocytes # 1.2 10*3/uL (1.4-4.0); Lymphocytes % 24.3 % (21.3-54.2); Mean Corpuscular HGB Conc 32.7 GM/DL (32-36); Mean Corpuscular Volume 88.6 FL (87-102); Monocytes # 0.3 10*3/uL (0.11-0.8); Neutrophils % 64.8 % (38.7-73.9); Platelet Count 52 T/CUMM (130-400); White Blood Count 4.9 T/CUMM (4-12)
[2022-06-24 05:31] LABS: Hypochromia Slight; Microcytosis Slight; Platelet Estimate Decreased
[2022-06-24 05:36] LABS: Albumin 2.9 G/DL (3.4-5.0); Bilirubin,Total 0.4 MG/DL (0.20-1.00); Calcium 8.6 MG/DL (8.5-10.1); Osmolality,Calculated 285.3 MOS/KG (273-304); Potassium 3.6 MMOL/L (3.5-5.1); Total Protein 6.8 G/DL (6.4-8.2)
[2022-06-24] MEDS: POTASSIUM CHLORIDE 20 MEQ TABLET PO SCH (08:16)
[2022-06-24] MEDS: CHLORTHALIDONE 25 MG TABLET PO SCH (08:17)
[2022-06-24] MEDS: CYANOCOBALAMIN 500 MCG TABLET PO SCH (08:17)
[2022-06-24] MEDS: PANTOPRAZOLE 40 MG TABLET PO SCH (08:17)
[2022-06-24 11:43] VITALS: BP 111/63
== END 2022-06-24 12:08 | disposition home health service (06) ==
LOC: N.ED 09:16 → N.EDINP 09:16 → SUATTDRO 16:48 → N.3E 19:36
PROVIDERS: ADMIT Internal Medicine; ATTEND Hospitalist